=== PATIENT | male | born 1945 | race Two or more races ===

== ENCOUNTER 2017-09-05 19:38 | Inpatient (IN) | payer OTHER, MEDICARE ==
[~2017-09-05] VITALS: Ht 170.2 cm; Wt 71.3 kg
[~2017-09-05 19:38] MED LIST: ALP15OS EACHEYE; AMLO10TA2 PO; ASPI325T4 PO; ATO40T PO; CALC0.25 PO; CITA-77 PO; DORZ2SOL22 EACHEYE; FURO40TA4 PO; INSLANTI SC; LEVO50TA7 PO; LISI40TA PO; METO25TA5 PO; TAMS0.4C36 PO; [UNRECOGNIZED DRUG - CODE] OP
[2017-09-05] MEDS ORDERED: ACETAMINOPHEN 325 MG TAB PO ONE (21:15)
[2017-09-05 21:40] LABS: Basophils # (auto) 0.1 uL; Basophils % (auto) 0.8 % (0.0-2.0); Eosinophils # (auto) 0 uL; Hematocrit 37.2 % (41.0-53.0); Hemoglobin 12.4 g/dL (13.5-17.5); Lymphocytes # (auto) 0.4 uL; Mean Corpuscular Hemoglobin 30.2 pg (28.0-32.0); Mean Corpuscular Hgb Conc. 33.4 g/dL (32.0-36.0); Mean Corpuscular Volume 90.2 fL (80.0-100.0); Monocytes # (auto) 0.6 uL; Monocytes % (auto) 9.4 % (0.0-12.0); Neutrophils # (auto) 5.4 uL; Neutrophils % (auto) 83.8 % (37.0-80.0); Platelet Count (auto) 192 10^3/uL (140-450); Red Blood Cells 4.12 10^6/uL (4.5-5.90); Red Cell Distribution Width 15.1 % (11.8-14.3); White Blood Cell 6.4 10^3/uL (4.4-10.8)
[2017-09-05 21:56] LABS: INR 1.05 (0.9-1.15); Partial Thromboplastin Time 31.3 sec (22.64-33.71); Prothrombin Time 11.5 sec (9.37-12.3)
[2017-09-05 22:19] LABS: Albumin 3.8 g/dL (3.4-5.0); BUN/Creatinine Ratio 6.4; Bilirubin, Total 0.9 mg/dL (0.2-1.0); Calcium 8.3 mg/dL (8.5-10.1); Magnesium 2.5 mg/dL (1.6-2.6); Potassium 4.2 mmol/L (3.5-5.1); Total Protein 8.4 g/dL (6.4-8.2)
[2017-09-06] MEDS ORDERED: DEXTROSE (50%) 50ML SYRG IV PRN (01:30)
[2017-09-06] MEDS ORDERED: NITROGLYCERIN 0.4 MG SL TAB SL PRN (01:30)
[2017-09-06] MEDS ORDERED: MORPHINE SULFATE 4 MG/ML SYR/VIAL IV PRN (01:30)
[2017-09-06] MEDS: LACTULOSE 20Gm/30ML SOLN PO ONE ×2 (05:30→05:34)
[2017-09-06] MEDS: InsuLIN REG 1unit/0.01ml Soln (100units/ml) SC SCH ×4 (06:43→22:00)
[2017-09-06] MEDS: LEVOTHYROXINE SODIUM 50 MCG TAB PO SCH (06:43)
[2017-09-06] MEDS: ACCU-CHEK COMFORT CURVE STRIP VI SCH ×4 (06:43→22:00)
[2017-09-06] MEDS ORDERED: hydrALAZINE HCL 20 MG/ML VL IV ONE (06:45)
[2017-09-06 07:56] LABS: Urine Bacteria FEW /hpf (None Seen); Urine Blood 2+ /uL (Negative); Urine Mucus FEW (None Seen); Urine Specific Gravity 1.013 (1.001-1.035); Urine WBC 3 /hpf (0 - 3)
[2017-09-06 07:58] LABS: Basophils # (auto) 0.1 uL; Basophils % (auto) 1.2 % (0.0-2.0); Eosinophils # (auto) 0.1 uL; Eosinophils % (auto) 0.7 % (0.0-7.0); Hematocrit 37.3 % (41.0-53.0); Hemoglobin 12.3 g/dL (13.5-17.5); Lymphocytes # (auto) 0.8 uL; Lymphocytes % (auto) 10.9 % (10.0-50.0); Mean Corpuscular Hemoglobin 30.1 pg (28.0-32.0); Mean Corpuscular Volume 91.3 fL (80.0-100.0); Monocytes # (auto) 1.1 uL; Monocytes % (auto) 14.4 % (0.0-12.0); Neutrophils # (auto) 5.6 uL; Neutrophils % (auto) 72.8 % (37.0-80.0); Nucleated Red Blood Cells % 0.1 %; Platelet Count (auto) 180 10^3/uL (140-450); Red Blood Cells 4.09 10^6/uL (4.5-5.90); Red Cell Distribution Width 15.5 % (11.8-14.3); White Blood Cell 7.7 10^3/uL (4.4-10.8)
[2017-09-06 08:12] LABS: Calcium 8.4 mg/dL (8.5-10.1); Potassium 4.8 mmol/L (3.5-5.1)
[2017-09-06] MEDS ORDERED: ACETAMINOPHEN 650 mg PER 20 mL UD PO ONE (08:45)
[2017-09-06] MEDS ORDERED: HEPARIN DRIP/D5W 100UNITS/ML 250 ML IV SCH (09:22)
[2017-09-06] MEDS ORDERED: CLOPIDOGREL BISULFATE 75 MG TAB PO ONE (09:30)
[2017-09-06] MEDS ORDERED: HEPARIN SODIUM (PORCINE) 5000 UNITS/ML 1ML VIAL IV ONE (09:30)
[2017-09-06] MEDS ORDERED: amLODIPine BESYLATE 5 MG TAB PO SCH (10:00)
[2017-09-06] MEDS: ASPirin 81 mg TAB PO SCH (10:00)
[2017-09-06] MEDS: METOPROLOL TARTRATE 50 MG TAB PO SCH ×2 (10:00→11:31)
[2017-09-06 14:45] VITALS: BP 161/87
[2017-09-06 17:00] VITALS: BP 161/87
[2017-09-06 17:01] VITALS: BP 140/83
[2017-09-06 17:04] LABS: INR 1.05 (0.9-1.15)
[2017-09-06 17:10] LABS: Partial Thromboplastin Time > 170.00 sec (22.64-33.71)
[2017-09-06] MEDS: ATORVASTATIN 20 MG TAB PO SCH (21:44)
[2017-09-06] MEDS: CARVEDILOL 3.125 MG TAB PO SCH (21:45)
[2017-09-06 22:00] VITALS: BP 135/83
[2017-09-07] VITALS (7 sets, daily range): BP systolic 132–170; BP diastolic 57–85
[2017-09-07 01:07] LABS: INR 1.05 (0.9-1.15); Prothrombin Time 11.4 sec (9.37-12.3)
[2017-09-07] MEDS ORDERED: SODIUM CHL 0.9% 1000 ML BAG XX ONE (04:00)
[2017-09-07] MEDS: InsuLIN REG 1unit/0.01ml Soln (100units/ml) SC SCH ×4 (06:21→22:00)
[2017-09-07] MEDS: LEVOTHYROXINE SODIUM 50 MCG TAB PO SCH (06:21)
[2017-09-07] MEDS: ACCU-CHEK COMFORT CURVE STRIP VI SCH ×4 (06:21→22:37)
[2017-09-07 06:28] LABS: INR 1.34 (0.9-1.15)
[2017-09-07 06:37] LABS: Partial Thromboplastin Time > 170.00 sec (22.64-33.71)
[2017-09-07] MEDS: LISINOPRIL 10 MG TAB PO SCH (10:00)
[2017-09-07] MEDS: CARVEDILOL 3.125 MG TAB PO SCH ×2 (10:00→22:00)
[2017-09-07] MEDS: CLOPIDOGREL BISULFATE 75 MG TAB PO SCH (10:00)
[2017-09-07] MEDS: ASPirin 81 mg TAB PO SCH (10:00)
[2017-09-07 11:46] LABS: INR 1.06 (0.9-1.15); Prothrombin Time 11.6 sec (9.37-12.3)
[2017-09-07 11:52] LABS: Partial Thromboplastin Time 98.6 sec (22.64-33.71)
[2017-09-07] MEDS ORDERED: MORPHINE SULFATE 8mg/ml INJ SDV IV PRN (12:45)
[2017-09-07] MEDS: BACLOFEN 10 MG TAB PO SCH ×2 (15:20→22:00)
[2017-09-07] MEDS ORDERED: PROCHLORPERAZINE EDISYLATE 5 MG/ML 2ML VIAL IV ONE (16:15)
[2017-09-07] MEDS ORDERED: D5W/SOD CHLO 0.9% 1,000 ML IV SCH (16:15)
[2017-09-07] MEDS: ATORVASTATIN 20 MG TAB PO SCH (22:00)
[2017-09-07] MEDS: PROCHLORPERAZINE EDISYLATE 5 MG/ML 2ML VIAL IV PRN (22:37)
[2017-09-07] MEDS ORDERED: MORPHINE SULFATE 4 MG/ML SYR/VIAL IV PRN (23:15)
[2017-09-08] MEDS: PROCHLORPERAZINE EDISYLATE 5 MG/ML 2ML VIAL IV PRN (04:25)
[2017-09-08] MEDS ORDERED: ACETAMINOPHEN 650 mg PER 20 mL UD GT ONE ×2 (05:00→05:15)
[2017-09-08 05:34] VITALS: BP 156/90
[2017-09-08] MEDS: BACLOFEN 10 MG TAB PO SCH ×3 (06:00→15:36)
[2017-09-08] MEDS: LEVOTHYROXINE SODIUM 50 MCG TAB PO SCH (06:06)
[2017-09-08] MEDS: InsuLIN REG 1unit/0.01ml Soln (100units/ml) SC SCH ×2 (07:00→11:30)
[2017-09-08] MEDS: ACCU-CHEK COMFORT CURVE STRIP VI SCH ×2 (07:21→11:30)
[2017-09-08 09:00] VITALS: BP 126/70
[2017-09-08] MEDS: CLOPIDOGREL BISULFATE 75 MG TAB PO SCH (10:00)
[2017-09-08] MEDS: LISINOPRIL 10 MG TAB PO SCH (10:00)
[2017-09-08] MEDS: ASPirin 81 mg TAB PO SCH (10:00)
[2017-09-08] MEDS: CARVEDILOL 3.125 MG TAB PO SCH (10:00)
[2017-09-08] MEDS ORDERED: ASPI81CH43 PO (10:36)
[2017-09-08] MEDS ORDERED: BACL20TA PO (12:14)
[2017-09-08 13:00] VITALS: BP 120/63
[2017-09-08 14:44] VITALS: BP 135/57
[2017-09-08 15:00] VITALS: BP 136/79
== END 2017-09-08 16:10 | disposition hospice, home (50) | DRG 280 ==
LOC: ER 19:38 → EDBD 19:38 → TELE 19:39 → TELE-CENTR 09-06 14:46
PROVIDERS: ADMIT Nurse Practitioner Family; ATTEND Internal Medicine
PROC: 5A1D70Z Performance of Urinary Filtration, Intermittent, Less than 6 Hours Per Day (ICD-10-PCS; principal; 2017-09-07)
DX: I13.2 Hypertensive heart and chronic kidney disease with heart failure and with stage 5 chronic kidney disease, or end stage renal disease (principal); I21.A1 Myocardial infarction type 2; G93.41 Metabolic encephalopathy; E87.2 Acidosis; N18.6 End stage renal disease; E87.1 Hypo-osmolality and hyponatremia; Z79.899 Other long term (current) drug therapy; E11.21 Type 2 diabetes mellitus with diabetic nephropathy; I42.9 Cardiomyopathy, unspecified; Z66 Do not resuscitate; E11.319 Type 2 diabetes mellitus with unspecified diabetic retinopathy without macular edema; I50.9 Heart failure, unspecified; E11.40 Type 2 diabetes mellitus with diabetic neuropathy, unspecified; E11.22 Type 2 diabetes mellitus with diabetic chronic kidney disease; D63.8 Anemia in other chronic diseases classified elsewhere; E03.9 Hypothyroidism, unspecified; R29.6 Repeated falls; Z51.5 Encounter for palliative care; F03.90 Unspecified dementia, unspecified severity, without behavioral disturbance, psychotic disturbance, mood disturbance, and anxiety; F32.9 Major depressive disorder, single episode, unspecified; H54.8 Legal blindness, as defined in USA; I25.10 Atherosclerotic heart disease of native coronary artery without angina pectoris; I25.2 Old myocardial infarction; I69.30 Unspecified sequelae of cerebral infarction; Y92.009 Unspecified place in unspecified non-institutional (private) residence as the place of occurrence of the external cause; Z79.02 Long term (current) use of antithrombotics/antiplatelets; Z79.4 Long term (current) use of insulin; Z79.82 Long term (current) use of aspirin; Z82.49 Family history of ischemic heart disease and other diseases of the circulatory system; Z83.3 Family history of diabetes mellitus; Z91.15 Patient's noncompliance with renal dialysis; Z91.19 Patient's noncompliance with other medical treatment and regimen; Z99.2 Dependence on renal dialysis
CPT/HCPCS: 36415; 70450; 71045; 80048; 80053; 81001; 82962; 83036; 83605; 83735; 83880; 84443; 84484; 85025; 85610; 85730; 87040; 87081; 90935; 93005; 93306; 96361; 96374; J1642; J1815